=== PATIENT | male | born 1955 | race African-American/Black ===

== ENCOUNTER 2021-09-02 07:57 | Emergency (ER) | payer MEDICARE, MEDICAID ==
[~2021-09-02] VITALS: Ht 177.8 cm; Wt 100.0 kg
[2021-09-02] MEDS ORDERED: OLANZAPINE 5MG TABLET ODT PO ONE (08:30)
[2021-09-02] MEDS ORDERED: HYDROCODONE/ACETAMINOPHEN 10/325MG TABLET PO ONE (08:30)
[2021-09-02] MEDS ORDERED: DICL75TA5 MT (12:52)
[2021-09-02] MEDS ORDERED: CYCL5TAB MT (12:52)
[2021-09-02 19:36] VITALS: BP 160/86
== END 2021-09-02 19:38 ==
LOC: ER 07:57
DX: M48.04 Spinal stenosis, thoracic region (principal); Z91.81 History of falling; I10 Essential (primary) hypertension; M48.061 Spinal stenosis, lumbar region without neurogenic claudication; M48.02 Spinal stenosis, cervical region; F20.9 Schizophrenia, unspecified
CPT/HCPCS: 72141; 72146; 72148; 99284